=== PATIENT | female | born 1945 ===

== ENCOUNTER 2020-09-03 11:20 | Emergency (ER) | payer OTHER ==
[~2020-09-03] VITALS: Ht 162.6 cm; Wt 81.6 kg
[2020-09-03] MEDS ORDERED: ALLEGRA ALLERG180 MG PO (12:07)
[2020-09-03] MEDS ORDERED: GLUMETZA500 MG PO (12:07)
[2020-09-03] MEDS ORDERED: COZAAR100 MG PO (12:07)
[2020-09-03] MEDS ORDERED: CHILDREN'S ASPI81 MG PO (20:11)
== END 2020-09-03 22:27 ==
LOC: ER 11:20
DX: G45.8 Other transient cerebral ischemic attacks and related syndromes (principal); Z20.828 Contact with and (suspected) exposure to other viral communicable diseases

== ENCOUNTER → 2020-10-03 | Outpatient (CLI) | payer OTHER ==
[~2020-10-03] MED LIST: ALLEGRA ALLERG180 MG PO; CHILDREN'S ASPI81 MG PO; COZAAR100 MG PO; GLUMETZA500 MG PO
== END | disposition home or self-care (01) ==
LOC: NUCLEAR 09:00
PROVIDERS: ATTEND Psychiatry & Neurology Clinical Neurophysiology
DX: G45.1 Carotid artery syndrome (hemispheric) (principal); I51.7 Cardiomegaly

== ENCOUNTER 2020-10-13 09:36 | Emergency (ER) | payer OTHER ==
[~2020-10-13] VITALS: Ht 162.6 cm; Wt 78.0 kg
== END 2020-10-13 15:21 | disposition home or self-care (01) ==
LOC: ER 09:36
DX: G51.0 Bell's palsy (principal)

== ENCOUNTER 2021-06-12 13:25 | Outpatient (CLI) | payer OTHER | END 2021-06-12 13:33 | disposition home or self-care (01) | LOC: TOM 13:25 | PROVIDERS: ATTEND Psychiatry & Neurology Clinical Neurophysiology | DX: I48.19 Other persistent atrial fibrillation (principal); G45.0 Vertebro-basilar artery syndrome; I63.30 Cerebral infarction due to thrombosis of unspecified cerebral artery ==